=== PATIENT | female | born 1990 | race African-American/Black ===

== ENCOUNTER 2017-05-28 08:15 | Emergency (ER) | payer BC, OTHER ==
[2017-05-28 08:19] VITALS: BP 104/54
[2017-05-28 08:27] VITALS: BMI 31.9
--- NOTE | 2017-05-28 08:45 | DR.SORETHR ---
HPI - Time Seen Time seen: 08:40 - Primary Care Physician Primary Care Physician: NFD - Complaints Chief Complaint:: PT WRITES " I PULLED OUT MY OWN TOOTH YESTERDAY AND I WOKE UP THIS WITH A SORE THROAT AND I CANT TALK" - Reviewed Nurses Notes Reviewed: Yes - Source History Provided: Patient - Mode of Arrival Mode of Arrival: Ambulatory - Timing Onset of Chief Complaint: 05/28/17 - Context Exposed to:: None Symptoms:: Pain - Location Location:: Throat - Associated Signs and Symptoms Associated Signs and Symptoms: Fever PMH - PMH Past Medical History: No Past Medical History: Seizures Past Surgical History: No 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 - Family History History of Family Medical Conditions: No Family Medical History: [place] - Social History Does patient currently use any type of tobacco product: Yes Have you used tobacco products in the last 12 months: Yes Type of Tobacco Use: Cigarettes How many years tobacco product used: 5 Does any household member use tobacco: No Alcohol Use: None Do you use any recreational Drugs:: No Lives With: Family Lives Where: Home - infectious screening In the last 2 months have you had wt loss of >10#?: NO Have you had fever, night sweats or hemotysis?: No Have you traveled outside the country in the last 6 months?: No Isolation: Standard PE - Vital Signs Vitals: Temperature 100.0 F Pulse Rate 107 Respiratory Rate 20 Blood Pressure [Left Arm] 104/54 Blood Pressure 104/54 O2 Sat by Pulse Oximetry 97 - Diagnosis Discharge Problem: Pharyngitis, acute Qualifiers: Pharyngitis/tonsillitis etiology: unspecified etiology Qualified Code(s): J02.9 - Acute pharyngitis, unspecified - Discharge Plan Condition: Stable Prescriptions: Amoxicillin [AMOXIL CAP 500 MG *] 500 mg PO TID #30 cap Ibuprofen [Motrin Tab 800 mg] 800 mg PO Q8H PRN #30 tab PRN Reason: Pain/Inflammation - Follow ups/Referrals Follow ups/Referrals: NFD,None [Primary Care Provider] - 3 days - Instructions Instructions: Pharyngitis
[2017-05-28] MEDS ORDERED: ROCEPHIN VIAL 1 GM IM ONE (08:46)
[2017-05-28] MEDS ORDERED: PEDIAPRED ORAL SOLN 5 MG/5ML PO ONE (08:48)
[2017-05-28] MEDS ORDERED: ROCEPHIN VIAL 1 GM ONE (08:52)
[2017-05-28] MEDS ORDERED: PRELONE Elixir 15 MG UDC ONE (08:52)
[2017-05-28] MEDS ORDERED: XYLOCAINE 1 % (PLAIN) ONE (08:53)
== END 2017-05-28 09:33 | disposition home or self-care (01) ==
LOC: ER 08:41
DX: J02.9 Acute pharyngitis, unspecified (principal)
CPT/HCPCS: 96372; 99282; 99283; J0696; J2001

== ENCOUNTER 2017-07-21 07:12 | Emergency (ER) | payer BC ==
[2017-07-21 07:18] VITALS: BP 137/76; BMI 33.2
--- NOTE | 2017-07-21 07:53 | DR.GENAD ---
HPI - PCP Primary Care Physician: NFD - HPI Comment HPI Comment: PATIENT WENT TO WORK BUT WAS WEAK AND HER CONDITION GOT WORSE. - Complaint/Symptoms Chief Complaint Doctors Comments: COUGH, COLD CONGESTION TIMES 2 DAYS. VOMITED X3 TODAY AND HAVE GENERALIZE BODY ACHE. NO FEVER. 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 negative: Chills, Fever Eyes: No Symptoms Reported. negative: Eye Pain, Discharge ENTM: Nose Discharge, Nose Congestion, Throat Pain. negative: Ear Pain Respiratoy: Productive Cough. negative: Short of Breath, Wheezing, Hemoptysis Cardiovascular: No Symptoms Reported Gastrointestinal/Abdominal: Nausea, Vomiting Genitourinary: No Symptoms Reported. negative: Dysuria, Frequency, Hematuria Neurological: Headache, Weakness, Dizziness Musculoskeletal: Muscle Pain Integumentary: No Symptoms Reported Hematologic/Lymphatic: No Symptoms Reported Endocrine: No Symptoms Reported All Other Systems: Reviewed and Negative PE - Vital Signs Vitals: Temperature 97.8 F Pulse Rate 80 Respiratory Rate 20 Blood Pressure [Left Arm] 104/54 Blood Pressure 137/76 O2 Sat by Pulse Oximetry 99 - General Limitations: No Limitations General Appearance: Alert - Head Head Exam: Normal Inspection - Eyes Eye exam: Normal Appearance - ENT ENT Exam: Normal External Ear Exam External Ear Exam: Normal External Inspection TM/Canal Exam: Bilateral Normal Mouth Exam: Normal Inspection Throat Exam: Tonsillar Erythema. negative: Tonsillomegaly, Tonsillar Exudate - Neck Neck Exam: Trachea Midline. negative: Tenderness, Meningismus, Lymphadenopathy - Chest Chest Inspection: Symmetric Chest Wall Rise - Respiratory Respiratory Exam: Normal Lung Sounds Bilat Respiratory Exam: Bilateral Clear to Auscultation - Cardiovascular Cardiovascular Exam: Regular Rate, Normal Rhythm, Normal Heart Sounds - Abdominal Exam Abdominal Exam: Normal Bowel Sounds, Soft. negative: Tenderness - Extremities Extremities Exam: Normal Inspection - Back Back Exam: Normal Inspection - Neurologic Neurological Exam: Alert, Oriented X3 - Psychiatric Psychiatric Exam: Normal Affect, Normal Mood - Skin Skin Exam: Normal Color MDM - Differential Diagnosis Differential Diagnosis: BRONCHITIS, SINUSITIS, GASTRITIS, STREP THROAT Course - Treatment Treatment: SEE ORDERS - Education/Counseling Education/Counseling: Patient, Education Educated On: Treatment, Diagnosis, Needs for Follow Up ROR - Labs Reviewed Laboratory Results Reviewed?: Yes Laboratory: Streptococcus Screen Positive (NEGATIVE) A 07/21/17 07:32 - Diagnosis Discharge Problem: Strep throat Nausea & vomiting Qualifiers: Vomiting type: bilious vomiting Qualified Code(s): R11.14 - Bilious vomiting URI (upper respiratory infection) Qualifiers: URI type: unspecified URI Qualified Code(s): J06.9 - Acute upper respiratory infection, unspecified - Discharge Plan Disposition: 01 HOME, SELF-CARE Condition: Stable Prescriptions: Acetaminophen with Codeine [Tylenol/Codeine #3 300-30 mg] 1 tab PO Q6H PRN #15 tab PRN Reason: Pain Amoxicillin [Amoxil 875 mg] 875 mg PO TID #30 tab Ondansetron HCl [Zofran Tab 4 mg] 4 mg PO Q8H PRN #12 tab PRN Reason: Nausea/Vomiting - Follow ups/Referrals Follow ups/Referrals: NFD,None [Primary Care Provider] - 3 days - Instructions Instructions: Strep Throat, [id number], Nausea, Adult, [id number] Additional Instructions: RETURN TO ED IF WORSE.
== END 2017-07-21 08:22 | disposition home or self-care (01) ==
LOC: ER 07:12
DX: J02.0 Streptococcal pharyngitis (principal); J06.9 Acute upper respiratory infection, unspecified; R11.14 Bilious vomiting
CPT/HCPCS: 87880; 99282

== ENCOUNTER 2018-01-23 21:52 | Emergency (ER) | payer BC, OTHER ==
[2018-01-23 22:01] VITALS: BP 131/78; BMI 33.0
--- NOTE | 2018-01-23 22:40 | DR.GENAD ---
HPI - PCP Primary Care Physician: NFD - HPI Comment HPI Comment: GETTING WORSE.. - Complaint/Symptoms Chief Complaint Doctors Comments: COUGH, CONGESTION, SORETHROAT , FEVER AND BODYACHES TIMES 2 DAYS. Chief Complaint:: PATIENT STATES SHE FEELS THE SAME WAY THAT SHE FELT LAST YEAR WHEN SHE HAD THE FLU. PATIENTS STATES SHE HAS BEEN RUNNING FEVER TODAY. 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 negative: Chills Eyes: negative: Eye Pain, Discharge ENTM: Nose Discharge, Nose Congestion, Throat Pain. negative: Ear Pain Respiratoy: Productive Cough, Short of Breath. negative: Wheezing, Hemoptysis Cardiovascular: No Symptoms Reported Gastrointestinal/Abdominal: No Symptoms Reported Genitourinary: No Symptoms Reported Neurological: No Symptoms Reported, Headache, Weakness, Dizziness Musculoskeletal: Joint Pain, Muscle Pain, Leg Integumentary: No Symptoms Reported Hematologic/Lymphatic: No Symptoms Reported Endocrine: No Symptoms Reported All Other Systems: Reviewed and Negative PE - Vital Signs Vitals: Temperature 99.4 F Pulse Rate 98 Respiratory Rate 18 Blood Pressure [Left Arm] 104/54 Blood Pressure 131/78 O2 Sat by Pulse Oximetry 99 - General Limitations: No Limitations General Appearance: Alert - Head Head Exam: Normal Inspection - Eyes Eye exam: Normal Appearance - ENT ENT Exam: Normal External Ear Exam External Ear Exam: Normal External Inspection TM/Canal Exam: Bilateral Normal Nose Exam: Normal Nose Exam Mouth Exam: Normal Inspection Throat Exam: Tonsillar Erythema. negative: Tonsillomegaly, Tonsillar Exudate - Neck Neck Exam: Trachea Midline - Chest Chest Inspection: Symmetric Chest Wall Rise - Respiratory Respiratory Exam: Normal Lung Sounds Bilat Respiratory Exam: Bilateral Clear to Auscultation - Cardiovascular Cardiovascular Exam: Regular Rate, Normal Rhythm, Normal Heart Sounds - Abdominal Exam Abdominal Exam: Normal Bowel Sounds, Soft. negative: Tenderness - Extremities Extremities Exam: Normal Inspection - Back Back Exam: Normal Inspection - Neurologic Neurological Exam: Alert, Oriented X3 - Psychiatric Psychiatric Exam: Normal Affect, Normal Mood - Skin Skin Exam: Normal Color MDM - Differential Diagnosis Differential Diagnosis: INFLUENZA, BRONCHITIS, STREP THROAT, Course - Treatment Treatment: SEE ORDERS. - Education/Counseling Education/Counseling: Patient, Education Educated On: Treatment, Diagnosis, Needs for Follow Up ROR - Labs Reviewed Laboratory Results Reviewed?: Yes Laboratory: Influenza Type A (PCR) Negative (NEGATIVE) 01/23/18 22:18 Influenza Type B (PCR) Negative (NEGATIVE) 01/23/18 22:18 - Diagnosis Discharge Problem: Pharyngitis, acute, Bronchitis - Discharge Plan Disposition: 01 HOME, SELF-CARE Condition: Stable Prescriptions: Amoxicillin [Amoxil 875 mg] 875 mg PO Q12H #20 tab Cetirizine HCl [Zyrtec Tab 10 mg] 10 mg PO DAILY PRN #10 tab PRN Reason: Promethazine W/Codeine [PHENERGAN W/CODEINE 6.25mg/10mg (5mL) *] 5 ml PO Q6H PRN #120 ml PRN Reason: Cough - Follow ups/Referrals Follow ups/Referrals: NFD,None [Primary Care Provider] - 3 days - Instructions Instructions: Tonsillitis, [id number], Acute Bronchitis Additional Instructions: RETURN TO ED IF WORSE.
[2018-01-23] MEDS ORDERED: AMOXIL CAP 500 MG PO ONE ×2 (23:21→23:26)
[2018-01-23] MEDS ORDERED: TORADOL TAB PO ONE ×2 (23:21→23:26)
[2018-01-23] MEDS ORDERED: PHENERGAN W/CODEINE 6.25MG/10MG PO ONE (23:21)
[2018-01-23] MEDS ORDERED: PHENERGAN W/CODEINE 6.25MG/10MG ONE (23:27)
== END 2018-01-23 23:38 | disposition home or self-care (01) ==
LOC: ER 22:07
DX: J20.9 Acute bronchitis, unspecified (principal); J02.9 Acute pharyngitis, unspecified
CPT/HCPCS: 87502; 99282